=== PATIENT | female | born 1945 | race Caucasian/White ===

== ENCOUNTER → 2016-12-03 | Outpatient (CLI) | payer MEDICARE, MEDICAID ==
[~2016-12-03] MED LIST: ACYC800T PO; ANAS1TAB44 PO; ASP81TEC PO; CALC-794 PO; CHOL10003 PO; ERGO2000 PO; OMEG-12 PO; ONDA4TAB11 PO
--- NOTE | 2016-12-04 08:17 | Diagnostic Imaging Report ---
Bilateral screening mammogram The current study was also evaluated with a Computer Aided Detection (CAD) system. INDICATION: Screening. No current complaints stated on the questionnaire. COMPARISON: 12/03/15. FINDINGS: The breasts are composed of scattered fibroglandular densities. There are benign-appearing calcifications seen. Architectural distortion in the outer aspect of the left breast is again seen consistent with scarring from prior lumpectomy. Allowing for technique and positional differences, no suspicious change is seen. IMPRESSION: No significant change. ACR BI-RADS Category 2: Benign findings. Result letter will be mailed to the patient. Note: At least 10% of breast cancer is not imaged by mammography. Dictated by: Dictated on workstation # [id number]
== END ==
LOC: RAD 09:03
PROVIDERS: ATTEND Nurse Practitioner Adult Health
DX: Z12.31 Encounter for screening mammogram for malignant neoplasm of breast (principal)
CPT/HCPCS: 77067

== ENCOUNTER 2017-09-06 12:41 | Emergency (ER) | payer MEDICARE, MEDICAID ==
[~2017-09-06] VITALS: Ht 160 cm; Wt 57.2 kg
--- NOTE | 2017-09-06 13:07 | ED Neurological Problem ---
General Chief Complaint: Neurological Problems Stated Complaint: FACIAL DROOP Nursing Triage Note: PT TO ED WITHY C/O R SIDE FACIAL DROOP AND R NECK PAIN ONSET APPROX 1245. Nursing Sepsis Screen: No Definite Risk Source: patient Exam Limitations: no limitations History of Present Illness Time seen by provider: 12:42 Initial Comments This 72-year-old woman presents to the emergency room with right-sided facial weakness and droop. Symptoms were noted after waking this morning. 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 Patient notes that she had URI symptoms over [place] and development of right-sided facial and neck pain after that time. Patient also has a history of herpetic outbreaks when ill or taking steroids. The facial weakness and very clearly involves the eyelid and forehead as well, making it consistent with Sandoval's palsy. Fingerstick blood sugar was 101. Allergies and Home Medications Allergies Coded Allergies: ciprofloxacin (Verified Allergy, Unknown, 07/05/14) fluoxetine (Verified Allergy, Unknown, 07/05/14) meperidine (Verified Allergy, Unknown, 07/05/14) Home Medications Acyclovir 800 Mg Tablet, 400 MG PO DAILY, (Reported) Acyclovir 400 Mg Tablet, 400 MG PO 5XD, #35 Prescribed by: MARIA DEL CARMEN THOMSON on 09/06/17 1309 Anastrozole 1 Mg Tab, 1 MG PO DAILY, (Reported) Aspirin 81 Mg Tabec, 81 MG PO DAILY, (Reported) Calcium Carb & Cit/Vitamin D3 1 Each Tablet.er, 2 EACH PO DAILY, (Reported) Cholecalciferol 1,000 Unit Tablet, 1,000 UNIT PO DAILY, (Reported) [place]-3/Dha/Epa/Fish Oil 1 Each Capsule.dr, 1,000 MG PO DAILY, (Reported) Ondansetron 4 Mg Tab.rapdis, 4 MG PO Q6H PRN for NAUSEA/VOMITING, #10 Ref 0 Prescribed by: MEGHAN ZAMAN on 07/05/14 1449 Prednisone 20 Mg Tab, 60 MG PO DAILY, #18 Prescribed by: MARIA DEL CARMEN THOMSON on 09/06/17 1309 Constitutional: no symptoms reported Eyes: See HPI Ears, Nose, Mouth, Throat: see HPI Respiratory: no symptoms reported Cardiovascular: no symptoms reported Gastrointestinal: no symptoms reported : No Musculoskeletal: no symptoms reported Skin: no symptoms reported Psychiatric/Neurological: No Symptoms Reported Endocrine: No Symptoms Reported Past Ldhqejr-Japebv-Eqsmxs Hx Patient Social History Alcohol Use: Denies Use Recreational Drug Use: No Smoking Status: Never a Smoker Recent Foreign Travel: No Contact w/Someone Who Travel: No Recent Infectious Disease Expo: No Physical Abuse: No Sexual Abuse: No Immunizations Up To Date Date of Pneumonia Vaccine: Aug 06, 2011 Date of Influenza Vaccine: Jun 28, 2014 Seasonal Allergies Seasonal Allergies: Yes Surgeries History of Surgeries: Yes ( LEFT LUMPECTOMY WITH SENTINAL NODE, PORT, HEART CATH) Surgeries: Breast, Eye Surgery, Gallbladder, Tubal Ligation Respiratory History of Respiratory Disorde: Yes Respiratory Disorders: Asthma, Pneumonia, Chronic Bronchitis Cardiovascular History of Cardiac Disorders: No (STATES HEART CATH IS CLEAN) Neurological History of Neurological Disord: No Reproductive System : No Genitourinary History of Genitourinary Disor: No Gastrointestinal History of Gastrointestinal Di: No Musculoskeletal History of Musculoskeletal Dis: No 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) Cancer History of Cancer: Yes Cancer: Breast Psychosocial History of Psychiatric Problem: Yes (History of alcoholism in long-term abstinence and recovery) Suicide Risk Score: 0 Integumentary History of Skin or Integumenta: No Blood Transfusions History of Blood Disorders: No Physical Exam Vital Signs Vital Sign - Last 12Hours 09/06/17 12:49 Temp 98.3 Pulse 106 Resp 16 B/P (MAP) 168/93 (118) Pulse Ox 96 Capillary Refill : Less Than 3 Seconds General Appearance: WD/WN, no apparent distress HEENT: PERRL/EOMI, pharynx normal, other (Right-sided facial droop involving the mouth, cheek, eye lids, and forehead. Cerumen impaction noted bilaterally) Neck: supple, normal inspection Respiratory: lungs clear, normal breath sounds, no respiratory distress, no accessory muscle use Cardiovascular: regular rate, rhythm, no edema, no murmur Gastrointestinal: non tender, soft Extremities: normal inspection, no pedal edema Neurologic/Psychiatric: alert, normal mood/affect, oriented x 3 [place] Nerves: normal hearing, normal speech, PERRL, facial asymmetry, facial droop, other (Droop of the right face including the mouth, cheek, eyelids, and forehead. Dysphagia screen was passed) Coordination/Gait: normal finger to nose, normal gait Motor/Sensory: no motor deficit (Except for right-sided facial droop), no sensory deficit, no pronator drift Skin: normal color, warm/dry Progress/Results/Core Measures Results/Orders Lab Results Laboratory Tests Test 09/06/17 12:49 Range/Units Glucometer 101 70-110 MG/DL My Orders Orders - MARIA DEL CARMEN SANTIAGO MD Acyclovir Capsule/Tablet (Zovirax Caps (09/06/17 13:15) Prednisone Tablet (Deltasone Tablet) (09/06/17 13:15) Vital Signs/I&O Vital Sign - Last 12Hours 09/06/17 09/06/17 12:49 13:40 Temp 98.3 98.3 Pulse 106 106 Resp 16 16 B/P (MAP) 168/93 (118) Pulse Ox 96 96 Blood Pressure Mean: 118 Progress Note : Progress Note Patient's symptomatology was identified as probable Sandoval's palsy, especially considering the preceding URI illness and facial pain. She was immediately started on acyclovir and prednisone. Discharge instructions were reviewed. Departure Impression Impression: Primary Impression: Facial droop Additional Impressions: Sandoval's palsy Cerumen impaction Qualified Codes: H61.21 - Impacted cerumen, right ear Disposition: 01 HOME, SELF-CARE Condition: Improved Departure-Patient Inst. Decision time for Depature: 13:03 Referrals: LUCIE COOK DO (PCP) Primary Care Physician JAD KOLB (Family) Primary Care Physician Patient Instructions: Sandoval's Palsy, Ear Wax Impaction Add. Discharge Instructions: Complete the acyclovir as prescribed for 7 days. Start your prednisone prescription tomorrow and complete a full 7 day course ( including the dose you received in the ER). Follow-up with your primary care provider and/or an ENT specialist for further evaluation and for the ear wax impaction in your right ear. Where sunglasses to protect your eyes outside. Avoid damien environments or any environment in which debris may strike your eye. If you are unable to completely shut your eye, please tape your eye lid shut at night. Use over-the- counter moisturizing drops liberally to keep the eye wet. Return to the emergency room if you have worsening symptoms or if you develop new numbness or weakness in any other part of the body. Also return if you have any further visual changes, confusion, or other new neurologic symptoms. [facility] are open until 6 p.m. tonight. [facility] is open until 3 p.m. All discharge instructions reviewed with patient and/or family. Voiced understanding. Scripts Acyclovir (Acyclovir) 400 Mg Tablet 400 MG PO 5XD, #35 TAB Prov: MARIA DEL CARMEN SANTIAGO MD 09/06/17 Prednisone (Prednisone) 20 Mg Tab 60 MG PO DAILY, #18 TAB Prov: MARIA DEL CARMEN SANTIAGO MD 09/06/17 Copy Copies To 1: LUCIE COOK JOSHUA T MD Sep 06, 2017 13:07
[2017-09-06] MEDS ORDERED: ACYC400T PO (13:09)
[2017-09-06] MEDS ORDERED: PRD20T PO (13:09)
[2017-09-06] MEDS ORDERED: ACYCLOVIR 400 MG TABLET (ZOVIRAX) PO ONE (13:15)
[2017-09-06] MEDS ORDERED: predniSONE 20 MG TAB PO ONE (13:15)
[2017-09-06 13:40] VITALS: BP 155/89
== END 2017-09-06 13:40 | disposition home or self-care (01) ==
LOC: EDUNIT# 12:41 → ER 12:42
DX: G51.0 Bell's palsy (principal); H61.21 Impacted cerumen, right ear; J45.909 Unspecified asthma, uncomplicated; Z87.01 Personal history of pneumonia (recurrent); Z85.3 Personal history of malignant neoplasm of breast; Z79.82 Long term (current) use of aspirin; Z98.51 Tubal ligation status
CPT/HCPCS: 82962; 99283

== ENCOUNTER 2017-11-17 12:54 | Outpatient (RCR) | payer MEDICARE, MEDICAID ==
[~2017-11-17 12:54] MED LIST changes: +ACYC400T PO; +PRD20T PO
== END 2017-12-22 10:47 | disposition home or self-care (01) ==
PROVIDERS: ATTEND Otolaryngology Otolaryngology/Facial Plastic Surgery
DX: B02.21 Postherpetic geniculate ganglionitis (principal); R26.9 Unspecified abnormalities of gait and mobility

== ENCOUNTER → 2018-03-24 | Outpatient (CLI) | payer MEDICARE, MEDICAID ==
--- NOTE | 2018-03-24 17:05 | Diagnostic Imaging Report ---
INDICATION: Routine screening. COMPARISON: Comparison is made with prior exam from 12/03/2016 and 12/03/2015. TECHNIQUE: 2D and 3D bilateral screening mammography was performed with computer-aided detection (CAD) system. FINDINGS: Scattered fibroglandular densities are identified bilaterally. Benign nodules in the lateral right breast appear stable. There are post-therapeutic changes with an architectural distortion in the left breast from prior lumpectomy. Appearance of both breasts appears stable. No new mass is seen. There are benign calcifications bilaterally. No malignant appearing microcalcifications are seen. IMPRESSION: No mammographic features suspicious for malignancy are identified. ACR BI-RADS Category 2: Benign findings. Result letter will be mailed to the patient. Note: At least 10% of breast cancer is not imaged by mammography. Dictated by: Dictated on workstation # [id number]
== END ==
LOC: RAD 13:38
PROVIDERS: ATTEND Nurse Practitioner Community Health
DX: Z12.31 Encounter for screening mammogram for malignant neoplasm of breast (principal)
CPT/HCPCS: 77067

== ENCOUNTER → 2019-05-23 | Outpatient (CLI) | payer MEDICARE, MEDICAID ==
--- NOTE | 2019-05-23 17:31 | Diagnostic Imaging Report ---
INDICATION: Routine screening. COMPARISON: Comparison is made with prior mammograms from 03/24/2018 and 12/03/2016. TECHNIQUE: 2-D and 3-D bilateral screening mammography was performed. The current study was also evaluated with a Computer Aided Detection (CAD) system. 3-D tomosynthesis was also performed and reviewed. FINDINGS: Scattered fibroglandular densities are identified bilaterally. Post-therapeutic changes in the left breast are again noted. Overall parenchymal pattern appears to be stable. There are scattered benign calcifications. No mass or malignant-appearing microcalcifications are seen. Axillae are unremarkable. IMPRESSION: No mammographic features suspicious for malignancy are identified. ACR BI-RADS Category 2: Benign findings. Result letter will be mailed to the patient. Note: At least 10% of breast cancer is not imaged by mammography. Dictated by: Dictated on workstation # [id number]
== END ==
LOC: RAD 13:42
PROVIDERS: ATTEND Nurse Practitioner Community Health
DX: Z12.31 Encounter for screening mammogram for malignant neoplasm of breast (principal); Z85.3 Personal history of malignant neoplasm of breast
CPT/HCPCS: 77067

== ENCOUNTER → 2019-08-02 | Outpatient (CLI) | payer MEDICARE, MEDICAID ==
[~2019-08-02] MED LIST changes: +GADOBUTROL 7.5 MMOL/7.5 ML (GADAVIST) VIAL IV ONE
--- NOTE | 2019-08-02 15:37 | Diagnostic Imaging Report ---
PROCEDURE: MR imaging of the brain with and without contrast. TECHNIQUE: Multiplanar, multisequence MR imaging of the brain was performed with and without contrast. INDICATION: History of Sandoval's palsy on the right. Cognitive problems. History of breast cancer. Comparison: None. Findings: No acute ischemia, mass, or hemorrhage. No abnormal enhancement is seen. The ventricles and cortical sulci are mildly prominent. The basilar cisterns are symmetric and unremarkable. The sellar and suprasellar regions have a normal appearance. The major intracranial flow voids are intact. The brainstem and posterior fossa are unremarkable. A small mucous retention cyst is seen in the antrum of the left maxillary sinus. Otherwise, the paranasal sinuses and mastoid air cells demonstrate normal signal characteristics. The globes and orbits are unremarkable. Left-sided lens implant is noted. The scalp and calvarium have a normal appearance. Impression: 1. No acute ischemia, mass, or hemorrhage. No abnormal enhancement is seen to suggest metastatic disease. 2. Mild parenchymal volume loss. Dictated by: Dictated on workstation # [id number]
== END ==
LOC: RAD 13:35
PROVIDERS: ATTEND Nurse Practitioner Community Health
DX: G93.89 Other specified disorders of brain (principal); Z86.69 Personal history of other diseases of the nervous system and sense organs; Z85.3 Personal history of malignant neoplasm of breast
CPT/HCPCS: 70553

== ENCOUNTER 2020-08-21 05:40 | Outpatient (RCR) | payer MEDICARE, MEDICAID ==
[~2020-08-21] VITALS: Ht 160 cm; Wt 56.4 kg
[~2020-08-21 05:40] MED LIST changes: -GADOBUTROL 7.5 MMOL/7.5 ML (GADAVIST) VIAL IV ONE
== END 2020-08-21 13:10 | disposition home or self-care (01) ==
LOC: PREOP 05:40
PROVIDERS: ATTEND Specialist
DX: Z01.818 Encounter for other preprocedural examination (principal); H25.11 Age-related nuclear cataract, right eye; Z20.828 Contact with and (suspected) exposure to other viral communicable diseases
CPT/HCPCS: 87635

== ENCOUNTER → 2020-08-22 | Outpatient (CLI) | payer MEDICARE, MEDICAID ==
--- NOTE | 2020-08-22 20:38 | Diagnostic Imaging Report ---
INDICATION: Routine screening. COMPARISON is made with prior mammograms from 05/23/2019 and 03/24/2018. 2-D and 3-D bilateral screening mammography was performed with CAD. Both breasts are heterogeneously dense, limiting the sensitivity of mammography. Post-therapeutic changes in the left breast are again noted. There are benign calcifications bilaterally. Benign nodules upper outer right breast appear stable. No new mass or malignant appearing microcalcifications are seen. The axillae are unremarkable. IMPRESSION: BI-RADS Category 2 No mammographic features suspicious for malignancy are identified. ACR BI-RADS Category 2: Benign findings. Result letter will be mailed to the patient. Note: At least 10% of breast cancer is not imaged by mammography. Dictated by: Dictated on workstation # [id number]
== END ==
LOC: RAD 11:15
PROVIDERS: ATTEND Nurse Practitioner Community Health
DX: Z12.31 Encounter for screening mammogram for malignant neoplasm of breast (principal); Z85.3 Personal history of malignant neoplasm of breast
CPT/HCPCS: 77063; 77067

== ENCOUNTER 2020-08-23 09:51 | Day surgery (SDC) | payer MEDICARE, MEDICAID ==
[~2020-08-23] VITALS: Ht 160 cm; Wt 56.4 kg
[2020-08-23] MEDS ORDERED: LIDOCAINE PF 1% 2 ML VIAL IR PRN (10:00)
[2020-08-23] MEDS ORDERED: TIMOLOL MALEATE 0.5% 5 ML (TIMOPTIC) BTL OU PRN (10:00)
[2020-08-23] MEDS ORDERED: MOXIFLOXACIN OPHTH SOLN 5 MG/ML 0.3 ML SYRINGE OP ONE (10:00)
[2020-08-23] MEDS ORDERED: POVIDONE (BETADINE) OPHTH SOLN 5% 30 ML OP ONE (10:00)
[2020-08-23] MEDS: TETRACAINE 0.5% OPHTH SOLN 4 ML BTL (SINGLE DOSE ONLY) OU PRN ×4 (10:11→10:41)
[2020-08-23 10:27] VITALS: BP 159/81
[2020-08-23] MEDS: PHENYLEPHRINE 10% OPHTH (NEO-SYN) 5 ML BTL OU SCH ×3 (10:30→10:41)
[2020-08-23] MEDS: TROPICAMIDE 1% OPH SOLN (MYDRIACYL) 15 ML BTL OP SCH ×3 (10:30→10:41)
--- NOTE | 2020-08-23 10:43 | Ophthalmologist Pre-Op Note ---
Pre-Operative Progress Note H&P Reviewed The H&P was reviewed, patient examined and no changes noted. Date H&P Reviewed: Aug 23, 2020 Time H&P Reviewed: 10:42 Pre-Op Dx Cataract, Right Eye KOKO PALACIO MD Aug 23, 2020 10:43
[2020-08-23] MEDS ORDERED: MIDAZOLAM 2 MG/2 ML (VERSED) VIAL ONE (10:44)
--- NOTE | 2020-08-23 11:02 | Ophthalmology Operative Report ---
Cataract removal/placement IOL PREOPERATIVE DIAGNOSIS: Cataract Right Eye POSTOPERATIVE DIAGNOSIS: Cataract Right Eye PROCEDURE: Cataract removal and placement of posterior chamber implant, right eye SURGEON: Calvin Palacio ANESTHESIA: Topical with sedation COMPLICATIONS: None ESTIMATED BLOOD LOSS: Minimal DESCRIPTION OF PROCEDURE: After proper informed consent was obtained, the patient, a 75 female, was taken to the Operating Room and the right eye was anesthetized with tetracaine. The right eye was then prepped and draped in the usual manner. A wire lid speculum was placed. A paracentesis was made at the left hand position. Preservative free lidocaine was injected into the anterior chamber followed by viscoelastic. A clear corneal incision was made in the temporal position. A capsulorrhexis was preformed and the central nuclear and cortical material were removed. The posterior capsule was polished and Gerald 24.5 [id number] IOL was placed into the capsular bag. The residual viscoelastic was aspirated and balanced saline solution was injected into the anterior chamber. Moxifloxacin was injected into the anterior chamber. The wound was checked and found to be water tight. The patient tolerated the procedure well without complications. CALVIN PALACIO MD Aug 23, 2020 11:02
[2020-08-23 11:15] VITALS: BP 140/89
[2020-08-23] MEDS ORDERED: acetaZOLAMIDE ER 500 MG CAP (DIAMOX SEQUELS) PO ONE (11:30)
== END 2020-08-23 11:16 | disposition home or self-care (01) ==
LOC: SDC 09:51
PROVIDERS: ATTEND Specialist
DX: H25.11 Age-related nuclear cataract, right eye (principal); G47.33 Obstructive sleep apnea (adult) (pediatric); F43.10 Post-traumatic stress disorder, unspecified; R73.9 Hyperglycemia, unspecified; M06.9 Rheumatoid arthritis, unspecified; G51.0 Bell's palsy; Z79.899 Other long term (current) drug therapy; Z88.1 Allergy status to other antibiotic agents; Z88.8 Allergy status to other drugs, medicaments and biological substances; Z83.3 Family history of diabetes mellitus; Z80.1 Family history of malignant neoplasm of trachea, bronchus and lung; Z80.3 Family history of malignant neoplasm of breast; Z80.0 Family history of malignant neoplasm of digestive organs; Z80.8 Family history of malignant neoplasm of other organs or systems
CPT/HCPCS: 66984; V2632

== ENCOUNTER → 2021-02-26 | Outpatient (CLI) | payer MEDICARE, MEDICAID ==
[~2021-02-26] MED LIST changes: +ACYC-112 PO; -ACYC400T PO; +ACYC400T21 PO; +GADOBUTROL 10 MMOL/10 ML (GADAVIST) VIAL IV ONE
--- NOTE | 2021-02-26 12:00 | Diagnostic Imaging Report ---
PROCEDURE: MR imaging of the brain with and without contrast. TECHNIQUE: Multiplanar, multisequence MR imaging of the brain was performed with and without contrast. INDICATION: Hemianopia. Evaluate for stroke or TIA. COMPARISON: 08/02/2019. Findings: No acute ischemia, mass, or hemorrhage. No abnormal enhancement. The ventricles, cortical sulci, and basilar cisterns are symmetric and unremarkable. The sellar and suprasellar regions have a normal appearance. The brainstem and posterior fossa are unremarkable. Mild mucosal thickening is seen in the maxillary sinuses. A small right mastoid effusion is present. The globes and orbits are symmetric and unremarkable. The scalp and calvarium have a normal appearance. IMPRESSION: 1. No acute ischemia, mass, or hemorrhage. No abnormal enhancement. Dictated by: Dictated on workstation # [id number]
== END ==
LOC: RAD 09:30
PROVIDERS: ATTEND Nurse Practitioner
DX: H53.461 Homonymous bilateral field defects, right side (principal); Z71.1 Person with feared health complaint in whom no diagnosis is made
CPT/HCPCS: 70553

== ENCOUNTER → 2021-09-05 | Outpatient (CLI) | payer MEDICARE, MEDICAID ==
[~2021-09-05] MED LIST changes: -GADOBUTROL 10 MMOL/10 ML (GADAVIST) VIAL IV ONE
--- NOTE | 2021-09-05 12:40 | Diagnostic Imaging Report ---
Digital mammogram bilateral screening COMPARISON: This study was compared to the prior exams of 08/22/2020, 05/23/2019 and 03/24/2018. By history, the patient did undergo a lumpectomy on the left for carcinoma in 2009. At this time, there are no current complaints. FINDINGS: The postsurgical and post therapeutic changes involving the left breast seen on the previous exams are again evident and not significantly changed. There is no evidence for a recurrent malignancy on the left. The fibroglandular tissue in both breasts is heterogeneously dense. This does limit the sensitivity of this exam. Overall, there does not appear to have been any significant change. There is no primary or secondary sign of malignancy noted. IMPRESSION: 1. The postsurgical and post therapeutic changes involving the left breast seen previously appear stable. There is no evidence for recurrent malignancy in this area. 2. There is no sign of malignancy involving either breast otherwise either. ACR BI-RADS Category 1: Negative. Result letter will be mailed to the patient. Note: At least 10% of breast cancer is not imaged by mammography. Dictated by: Dictated on workstation # [id number]
== END ==
LOC: RAD 10:30
PROVIDERS: ATTEND Nurse Practitioner
DX: Z12.31 Encounter for screening mammogram for malignant neoplasm of breast (principal); Z98.890 Other specified postprocedural states
CPT/HCPCS: 77063; 77067

== ENCOUNTER 2021-10-27 21:28 | Emergency (ER) | payer MEDICARE, MEDICAID ==
[~2021-10-27] VITALS: Ht 160 cm; Wt 49.9 kg
[2021-10-27 21:38] VITALS: BP 106/73
[2021-10-27] MEDS ORDERED: LACTATED RINGERS 1,000 ML IV STA (21:46)
[2021-10-27 21:53] LABS: BASOPHILS % (AUTO) 0 % (0-10); EOSINOPHILS # (AUTO) 0.1 10^3/uL (0.0-0.3); EOSINOPHILS % (AUTO) 3 % (0-10); HEMATOCRIT 45 % (35-52); LYMPHOCYTES % (AUTO) 51 % (12-44); MEAN CORPUSCULAR HEMOGLOBIN 32 pg (25-34); MEAN CORPUSCULAR HGB CONC 34 g/dL (32-36); MEAN CORPUSCULAR VOLUME 97 fL (80-99); MEAN PLATELET VOLUME 10.9 fL (9.0-12.2); MONOCYTES # (AUTO) 0.3 10^3/uL (0.0-1.0); MONOCYTES % (AUTO) 7 % (0-12); NEUTROPHILS # (AUTO) 1.5 10^3/uL (1.8-7.8); NEUTROPHILS % (AUTO) 39 % (42-75); PLATELET COUNT 238 10^3/uL (130-400); WHITE BLOOD COUNT 3.8 10^3/uL (4.3-11.0)
[2021-10-27] MEDS ORDERED: FAMOTIDINE 20MG/2ML IV (PEPCID) IVP ONE (22:00)
[2021-10-27] MEDS ORDERED: EPINEPHrine INJECTION 1 MG/ML AMP IM ONE (22:00)
--- NOTE | 2021-10-27 22:01 | ED General ---
General Chief Complaint: Allergic Reaction Stated Complaint: RASH,LOW BP,WHEEZING,COUGHING,SOB Source of Information: Patient Exam Limitations: No Limitations History of Present Illness Date Seen by Provider: Oct 27, 2021 Time Seen by Provider: 21:32 Initial Comments 76-year-old female with past medical history of hypertension coming in due to full body rash, wheezing, and low blood pressure. She says she ate something new that had nuts in it around 4:30 PM today. Around 9 PM she noticed a rash that was red along her whole body, at that time she felt like she was wheezing, took her blood pressure and she says systolic was in the 90s and typically she is around 110. Does not take any medicines daily. No allergies to foods that she knows of. Has not used any new soaps, detergents, or anything else. This is happened a couple times since August, and she is unsure what is the cause. She says this is the worst of all of the times. Took 25 mg of Benadryl prior to arrival. Allergies and Home Medications Allergies Coded Allergies: ciprofloxacin (Verified Allergy, Unknown, 07/05/14) fluoxetine (Verified Allergy, Unknown, 07/05/14) meperidine (Verified Allergy, Unknown, 07/05/14) Patient Home Medication List Home Medication List Reviewed: Yes Acyclovir (Acyclovir) 800 Mg Tablet, 800 MG PO DAILY, (Reported) Entered as Reported by: ADIA ACUÑA on 08/20/20 0906 Review of Systems Review of Systems Constitutional: No chills, No fever EENTM: No blurred vision Respiratory: No cough; short of breath Cardiovascular: No chest pain Gastrointestinal: No abdominal pain, No diarrhea, No nausea, No vomiting Genitourinary: no symptoms reported Musculoskeletal: no symptoms reported Skin: rash Psychiatric/Neurological: No Symptoms Reported Hematologic/Lymphatic: No Symptoms Reported Immunological/Allergic: see HPI All Other Systems Reviewed Negative Unless Noted: Yes Past Cslbdcx-Cfekud-Zryfyk Hx Patient Social History Tobacco Use?: No Seasonal Allergies Seasonal Allergies: Yes Past Medical History Surgeries: Yes ( LEFT LUMPECTOMY WITH SENTINAL NODE, PORT, HEART CATH) Breast, Eye Surgery, Gallbladder, Tubal Ligation Respiratory: Yes Asthma, Pneumonia, Chronic Bronchitis Cardiac: No (STATES HEART CATH IS CLEAN) Neurological: No Genitourinary: No Gastrointestinal: No Musculoskeletal: No Endocrine: Yes (HYPOGLYCEMIC) Cancer: Yes Breast Psychosocial: Yes (History of alcoholism in long-term abstinence and recovery) Integumentary: No Blood Disorders: No Physical Exam Vital Signs Vital Signs - First Documented 10/27/21 21:38 Temp 36.6 Pulse 77 Resp 20 B/P (MAP) 106/73 (84) Pulse Ox 93 O2 Delivery Room Air Capillary Refill : Height, Weight, BMI Height: 5'3.00" Weight: 126lbs. oz. 57.113790lb; BMI Method:Stated General Appearance: No Apparent Distress, WD/WN Eyes: Bilateral Eye Normal Inspection HEENT: PERRL/EOMI, Normal ENT Inspection, Pharynx Normal Neck: Full Range of Motion, Normal Inspection, Non Tender, Supple Respiratory: Chest Non Tender, Lungs Clear, Normal Breath Sounds, No Accessory Muscle Use, No Respiratory Distress Cardiovascular: Regular Rate, Rhythm, No Edema, Normal Peripheral Pulses Gastrointestinal: Normal Bowel Sounds, Non Tender, Soft; No Guarding Back: Normal Inspection, No CVA Tenderness, No Vertebral Tenderness Extremity: Normal Capillary Refill, Normal Inspection, Normal Range of Motion, Non Tender, No Calf Tenderness, No Pedal Edema Neurologic/Psychiatric: Alert, No Motor/Sensory Deficits, Normal Mood/Affect Skin: Normal Color, Warm/Dry, Other (Blanching confluent erythematous macular rash to her extremities and trunk, Nikolsky negative, no mucous membrane involvement) Lymphatic: No Adenopathy Progress/Results/Core Measures Suspected Sepsis SIRS Temperature: Pulse: Respiratory Rate: Laboratory Tests 10/27/21 21:46: White Blood Count 3.8L Blood Pressure / Mean: Laboratory Tests 10/27/21 21:46: Creatinine 0.83, Platelet Count 238, Total Bilirubin 0.3 Results/Orders Lab Results Laboratory Tests Test 10/27/21 21:46 Range/Units White Blood Count 3.8 L 4.3-11.0 10^3/uL Red Blood Count 4.64 3.80-5.11 10^6/uL Hemoglobin 15.0 11.5-16.0 g/dL Hematocrit 45 35-52 % Mean Corpuscular Volume 97 80-99 fL Mean Corpuscular Hemoglobin 32 25-34 pg Mean Corpuscular Hemoglobin Concent 34 32-36 g/dL Red Cell Distribution Width 11.6 10.0-14.5 % Platelet Count 238 130-400 10^3/uL Mean Platelet Volume 10.9 9.0-12.2 fL Immature Granulocyte % (Auto) 0 % Neutrophils (%) (Auto) 39 L 42-75 % Lymphocytes (%) (Auto) 51 H 12-44 % Monocytes (%) (Auto) 7 0-12 % Eosinophils (%) (Auto) 3 0-10 % Basophils (%) (Auto) 0 0-10 % Neutrophils # (Auto) 1.5 L 1.8-7.8 10^3/uL Lymphocytes # (Auto) 2.0 1.0-4.0 10^3/uL Monocytes # (Auto) 0.3 0.0-1.0 10^3/uL Eosinophils # (Auto) 0.1 0.0-0.3 10^3/uL Basophils # (Auto) 0.0 0.0-0.1 10^3/uL Immature Granulocyte # (Auto) 0.0 0.0-0.1 10^3/uL Sodium Level 142 135-145 MMOL/L Potassium Level 3.6 3.6-5.0 MMOL/L Chloride Level 105 98-107 MMOL/L Carbon Dioxide Level 24 21-32 MMOL/L Anion Gap 13 5-14 MMOL/L Blood Urea Nitrogen 16 7-18 MG/DL Creatinine 0.83 0.60-1.30 MG/DL Estimat Glomerular Filtration Rate 74 BUN/Creatinine Ratio 19 Glucose Level 177 H 70-105 MG/DL Calcium Level 8.8 8.5-10.1 MG/DL Corrected Calcium 9.0 8.5-10.1 MG/DL Total Bilirubin 0.3 0.1-1.0 MG/DL Aspartate Amino Transf (AST/SGOT) 17 5-34 U/L Alanine Aminotransferase (ALT/SGPT) 14 0-55 U/L Alkaline Phosphatase 82 40-136 U/L Total Protein 6.7 6.4-8.2 GM/DL Albumin 3.7 3.2-4.5 GM/DL My Orders Orders - SANA LIRIANO MD Cbc With Automated Diff (10/27/21 21:46) Comprehensive Metabolic Panel (10/27/21 21:46) Famotidine Injection (Pepcid Injection) (10/27/21 22:00) Dexamethasone Injection (Decadron Injec (10/27/21 22:00) Epinephrine 1 Mg Injection (Adrenalin I (10/27/21 22:00) Lactated Ringers (Lr 1000 Ml Iv Solution (10/27/21 21:46) Chest 1 View, Ap/Pa Only (10/27/21 21:46) Medications Given in ED Current Medications Medications Dose Ordered Sig/Mili Route Start Time Stop Time Status Last Admin Dose Admin Dexamethasone Sodium Phosphate 10 mg ONCE ONCE IV 10/27/21 22:00 10/27/21 22:01 DC 10/27/21 21:58 10 MG Epinephrine HCl 0.3 mg ONCE ONCE IM 10/27/21 22:00 10/27/21 22:01 DC 10/27/21 22:06 0.3 MG Famotidine 20 mg ONCE ONCE IVP 10/27/21 22:00 10/27/21 22:01 DC 10/27/21 22:04 20 MG Vital Signs/I&O 10/27/21 21:38 Temp 36.6 Pulse 77 Resp 20 B/P (MAP) 106/73 (84) Pulse Ox 93 O2 Delivery Room Air Capillary Refill : Progress Note : Progress Note 76-year-old female with above history coming in due to rash, previous wheezing, and transient low blood pressure. ABCs were intact and vitals were stable on presentation. I do appreciate the rash which does look potentially allergic in nature, especially given the timing. She is not wheezing here, is breathing comfortably, and sats are normal. I am concerned that she did says she had a low blood pressure with a wheezing at home though, so we will treat this as if it is anaphylaxis. IV was placed and she was given Pepcid since she is already received Benadryl, Decadron, and IV fluids. Given an IM dose of epinephrine and we will continue to monitor her. I frequently reassessed the patient at least every 15 minutes for 2 hours, and her symptoms continue to improve until they were completely resolved. She never did require a repeat dose of epinephrine. I will write her prescription for an EpiPen. 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 I believe she is stable for discharge with outpatient follow-up. She was sent home with strict return precautions Diagnostic Imaging Diagonstic Imaging: Xray Plain Films/CT/US/NM/MRI: chest Comments [facility]. [place], [place] NAME: MARIZOL CONDE [facility] REC#: [id number] PT STATUS: REG ER : 1945 PHYSICIAN: SANA LIRIANO MD ADMIT DATE: 10/27/21/ER Signed Date of Exam:10/27/21 CHEST 1 VIEW, AP/PA ONLY INDICATION: Shortness of breath. COMPARISON: 07/05/2014. FINDINGS: The lungs appear clear without focal infiltrate or consolidation. There are no findings of an effusion. There is no evidence of a pneumothorax. Heart size and mediastinal contours appear appropriate. Pulmonary vascularity appears within normal limits. There is no acute or suspicious osseous abnormality demonstrated. There are surgical clips in the left axilla and right upper quadrant. IMPRESSION: No radiographic evidence of an acute cardiopulmonary process. Dictated by: Dictated on workstation # [id number] Dict: 10/27/212230 Trans: 10/27/212231 [facility] [id number] Interpreted by: JONAH JOSE MD Electronically signed by: JONAH JOSE MD 10/27/212231 Departure Impression Primary Impression: Anaphylaxis Qualified Codes: T78.2XXA - Anaphylactic shock, unspecified, initial encounter Disposition: 01 HOME, SELF-CARE Condition: Stable Departure-Patient Inst. Decision time for Depature: 23:22 Referrals: [facility] Primary Care Physician JAD KOLB (Family) Primary Care Physician Patient Instructions: Anaphylaxis Add. Discharge Instructions: I sent a prescription for an EpiPen, if you have hives with vomiting, hypotension, wheezing or shortness of breath in the future then I recommend you use the EpiPen and either call 911 or [address] you to the ER. It still okay to take Benadryl. If you just have the hives in the absence of other symptoms, then the Benadryl alone is okay to take and you do not necessarily have to come to the ER for that. Please follow-up with the tiltrotor crew chief as soon as possible. If you wanted, you could take an [id number]-nksdnmn allergy medicine such as loratadine or cetirizine that is nondrowsy. You could take these daily and this could potentially limit this happening again. Scripts Epinephrine (Epipen 2-Tim) 0.3 Mg/0.3 Ml Auto.injct 0.3 MG IJ Q15M PRN for anaphylaxis for 1 Day, #1 EACH Prov: SANA LIRIANO MD 10/27/21 SANA LIRIANO MD Oct 27, 2021 22:01
[2021-10-27 22:03] LABS: ALBUMIN 3.7 GM/DL (3.2-4.5)
[2021-10-27 22:04] LABS: POTASSIUM 3.6 MMOL/L (3.6-5.0)
[2021-10-27 22:05] LABS: CALCIUM 8.8 MG/DL (8.5-10.1)
[2021-10-27 22:06] LABS: TOTAL PROTEIN 6.7 GM/DL (6.4-8.2)
[2021-10-27 22:08] LABS: BILIRUBIN,TOTAL 0.3 MG/DL (0.1-1.0)
[2021-10-27 22:09] LABS: CREATININE SERUM 0.83 MG/DL (0.60-1.30)
--- NOTE | 2021-10-27 22:34 | Diagnostic Imaging Report ---
INDICATION: Shortness of breath. COMPARISON: 07/05/2014. FINDINGS: The lungs appear clear without focal infiltrate or consolidation. There are no findings of an effusion. There is no evidence of a pneumothorax. Heart size and mediastinal contours appear appropriate. Pulmonary vascularity appears within normal limits. There is no acute or suspicious osseous abnormality demonstrated. There are surgical clips in the left axilla and right upper quadrant. IMPRESSION: No radiographic evidence of an acute cardiopulmonary process. Dictated by: Dictated on workstation # [id number]
[2021-10-27] MEDS ORDERED: EPIN0.3P3 IJ (23:24)
== END 2021-10-27 23:45 | disposition home or self-care (01) ==
LOC: EDUNIT# 21:28 → ER 21:33
DX: T78.2XXA Anaphylactic shock, unspecified, initial encounter (principal); J45.909 Unspecified asthma, uncomplicated
CPT/HCPCS: 36415; 71045; 80053; 85025

== ENCOUNTER → 2022-03-19 | Outpatient (CLI) | payer MEDICARE, MEDICAID ==
[~2022-03-19] MED LIST changes: +CATHETER FLUSH 10 ML SYR IVP PRN; +EPIN0.3P3 IJ
[2022-03-19 09:29] VITALS: BP 170/80
--- NOTE | 2022-03-19 12:30 | NUCLEAR STRESS TEST ---
TREADMILL NUCLEAR STRESS TEST Date of procedure: 03/19/2022. Primary care provider: Fatou Betancourt APRN. Admitting physician: Bernarda Levin Jr., MD. INDICATION: Abnormal electrocardiogram. BASELINE ELECTROCARDIOGRAM: Sinus rhythm with nonspecific T wave changes. STRESS TEST PROCEDURE: The patient was exercised for a total of 4 minutes and 0 seconds of the standard Mendoza protocol achieving a maximum MET level of 5.8. The resting heart rate was 72 bpm and the peak heart rate was 148 bpm, which represents 101% of the maximum predicted heart rate. The resting blood pressure was 163/79 mmHg and the peak blood pressure was 186/84 mmHg. This represents a normal heart rate and a normal blood pressure response to exercise with resting hypertension. The test was stopped due to fatigue. There was no chest discomfort during the test. There were no arrhythmias during the test. There were no significant stress induced electrocardiogram changes. The patient exhibited excellent exercise capacity for age. NUCLEAR PROCEDURE: The patient was administered 10.4 mCi of intravenous technetium 99m Tetrofosmin at rest for the rest images. The patient was subsequently administered 32.5 mCi of intravenous technetium 99 M Tetrofosmin at peak stress for the stress images. Following an appropriate wait after each injection, imaging was obtained. The images were subsequently processed and reformatted in the usual views. Gated imaging was obtained. The image quality was adequate with a mild degree of gastrointestinal attenuation artifact. CT attenuation correction was used as a adjunct to standard imaging. Both the carolyn ected and uncorrected images were reviewed for interpretation. NUCLEAR RESULTS: There was a small, mild intensity, fixed apical defect with no evidence of inducible ischemia. There was normal left ventricular chamber size with an end-diastolic volume of 29 mL and an end-systolic volume of 8 mL. There was no evidence of transient ischemic dilatation. The TID ratio was 0.98. Th ere was normal wall motion in all segments with a calculated ejection fraction of 73%. IMPRESSION: 1. Normal heart rate and blood pressure response to exercise with resting hypotension. 2. There was no chest discomfort, arrhythmias, or electrocardiogram changes during the test. 3. The patient exhibited excellent exercise capacity for age at 4 minutes of the Mendoza protocol. 4. There was a small, mild intensity, fixed apical defect with no evidence of inducible ischemia. 5. There was normal wall motion in all segments with a calculated ejection fraction of 73%. 6. This is an abnormal result although represents a low risk for possible future coronary ischemic events. Certain portions of this document may have been dictated utilizing voice recognition technology. Inherent to this technology, typographical and grammatical errors may exist. As much as I am diligent to identify and correct these mistakes, some errors may remain in the document. BERNARDA LEVIN JR, MD Mar 19, 2022 12:30
== END ==
LOC: CARD 08:00
PROVIDERS: ATTEND Internal Medicine Cardiovascular Disease
DX: R94.31 Abnormal electrocardiogram [ECG] [EKG] (principal)
CPT/HCPCS: 78452; 93017; A9502

== ENCOUNTER → 2022-03-20 | Outpatient (CLI) | payer MEDICARE, MEDICAID ==
[~2022-03-20] MED LIST changes: -CATHETER FLUSH 10 ML SYR IVP PRN
== END ==
LOC: CARD 12:29
PROVIDERS: ATTEND Internal Medicine Cardiovascular Disease
DX: I51.7 Cardiomegaly (principal)
CPT/HCPCS: 93306

== ENCOUNTER → 2022-09-23 | Outpatient (CLI) | payer MEDICARE, MEDICAID ==
--- NOTE | 2022-09-23 13:38 | Diagnostic Imaging Report ---
INDICATION: Routine screening. Comparison is made with prior mammogram from 09/05/2021 and 08/22/2020. 2-D and 3-D bilateral screening mammography was performed with CAD. Scattered fibroglandular densities are identified bilaterally. A benign nodule in the outer right breast posterior depth appears stable. Post-therapeutic changes in the left breast appears stable. There are scattered benign calcifications. No mass or malignant-appearing microcalcifications are seen. Axillae are unremarkable. IMPRESSION: No mammographic features suspicious for malignancy are identified. ACR BI-RADS Category 2: Benign findings. Result letter will be mailed to the patient. Note: At least 10% of breast cancer is not imaged by mammography. BI-RADS Category 2 Dictated by: Dictated on workstation # [id number]
== END ==
LOC: RAD 10:37
PROVIDERS: ATTEND Nurse Practitioner Family
DX: Z12.31 Encounter for screening mammogram for malignant neoplasm of breast (principal)
CPT/HCPCS: 77063; 77067

== ENCOUNTER 2022-10-23 20:23 | Outpatient (CLI) | payer MEDICARE, MEDICAID | END 2022-10-24 06:15 | disposition home or self-care (01) | LOC: SLEEP 20:23 | PROVIDERS: ATTEND Nurse Practitioner Family | DX: G47.33 Obstructive sleep apnea (adult) (pediatric) (principal); Z78.9 Other specified health status | CPT/HCPCS: 95810 ==